=== PATIENT | male | born 1995 | race Caucasian/White ===

== ENCOUNTER → 2017-10-09 | Outpatient (CLI) | payer BC ==
[2014-09-05 17:18] VITALS: BP 143/66
--- NOTE | 2017-10-09 12:17 | RAD ---
Examination: Chest x-ray. Clinical History: Diminished lung sounds, status post pancreatitis. Technique: PA and lateral views of the chest were obtained. Comparison: None available. Findings: The cardiac and mediastinal contours are within normal limits. No pneumothorax or pleural effusion is noted. The lungs appear clear. There is a mild thoracic scoliosis seen convex to the right, which may be positional in nature. No ac [place] osseous abnormality is noted. Surgical clips are seen in the upper abdomen. Impression: 1. No acute disease. Reported By:
== END ==
LOC: RAD 10:38
PROVIDERS: ATTEND Nurse Practitioner Family
DX: D72.829 Elevated white blood cell count, unspecified (principal)
CPT/HCPCS: 71046

== ENCOUNTER → 2018-02-06 | Outpatient (CLI) | payer BC, OTHER ==
[2014-09-05 17:18] VITALS: BP 143/66
--- NOTE | 2018-02-06 16:22 | CT ---
Examination: CT of the abdomen and pelvis with contrast. Clinical History: Follow-up pancreatitis, right upper quadrant pain, gallbladder removed. Technique: Multiple axial images were obtained from the lung bases down to the pubic symphysis follow ing the intravenous administration of 100 ml of Omnipaque 350. Oral contrast was also administered. D ose reduction techniques including automated exposure control (AEC) and adjustment of mA and kV were utilized. Comparison: None available. Findings: The visualized portion of the lung bases is unremarkable. Surgical clips are noted in the gallbladder fossa, consistent with a prior cholecystectomy. There is a tiny 3 mm nonobstructing calculus present at the lower pole of the right kidney. The kidne ys are otherwise within normal limits. Despite the clinical history of pancreatitis, the pancreas is normal in appearance, with no peripancr eatic stranding, fluid collection, or cystic or solid mass noted. The liver, spleen and adrenal glands are normal in appearance. The abdominal aorta is normal in caliber. The bowel gas pattern is non-obstructive. There is no free air. The colon is within normal limits. The small bowel is grossly unremarkable. The appendix is not visualized. The bladder, prostate and seminal vesicles are within normal limits. No pelvic mass or fluid collection is noted. No enlarged lymph nodes, by CT criteria, are noted in the mesenteric, periaortic or deep pelvic regio ns. There is a minor lumbar scoliosis seen convex to the left, which may be positional in nature. Vertebr al body endplate deformities, consistent with Schmorl's nodes are present at the T11 and T12 levels. No acute osseous abnormality is noted. Impression: 1. Despite the clinical history of pancreatitis, the pancreas is normal in appearance, with no peripa ncreatic stranding, fluid collection, or cystic or solid mass noted. 2. A tiny 3 mm nonobstructing calculus associated with the right kidney. 3. Postsurgical changes from a prior cholecystectomy. Reported By:
== END | disposition home or self-care (01) | DRG 392 ==
LOC: RAD 15:08
PROVIDERS: ATTEND Internal Medicine
DX: R10.811 Right upper quadrant abdominal tenderness (principal); Z87.19 Personal history of other diseases of the digestive system; Z90.49 Acquired absence of other specified parts of digestive tract; N20.0 Calculus of kidney
CPT/HCPCS: 74177; A4222

== ENCOUNTER 2021-01-17 07:35 | Observation (INO) ==
[2021-01-17 07:52] VITALS: BMI 22.3
[2021-01-17] MEDS ORDERED: PHENERGAN INJ 25 MG IM ONE ×2 (07:53→07:55)
[2021-01-17] MEDS ORDERED: NS 1000 ML 1,000 ML ONE ×2 (08:16→09:42)
[2021-01-17] MEDS ORDERED: NS 1000 ML 1,000 ML IV ONE ×2 (08:16→09:46)
--- NOTE | 2021-01-17 08:16 | DR.N/VMALE ---
HPI Time Seen Time Seen by Provider: 01/17/21 08:05 Primary Care Physician Primary Care Physician: Jay Jay HPI Comment HPI Comment: PATIENT IS 25YR OLD MALE IN ER WITH DIFFUSED ABDOMINAL PAIN, NAUSEA AND VOMITING FOR SEVERAL HOURS. HAVE HAD LOOSE STOOLS ALSO. PATIENT IS HAVING 8/10 INTERMITTENT ABDOMINAL CRAMPING 8/10 RADIATING TO THE BACK. PAIN WORSE IN RLQ. NO FEVER OR DYSURIA. DENIES SIMILAR PAIN PREVIOUSLY OR CONTACT WITH SOME ONE WITH VOMITING. HAVE BEING IN CONTACT WITH COVID 19 VIRUS POSITIVE PERSON. PATIENT ATE AT AN [employer] LAST NIGHT WITH OTHERS WHO DO NOT HAVE HIS SYMPTOM. Complaints Chief Complaint Doctors Comments: ABDOMINAL PAIN, NAUSEA AND VOMITING SINCE 12:00 MIDNIGHT. Chief Complaint:: Patient states that he eat [employer] last night around 6pm. He then states that he started thowing up around 12AM and cannot get it under control. COVID-19 Coronavirus risk:travel/contact w/high risk person: No Has patient experienced Coronavirus symptoms: No Reviewed Nurses Notes Reviewed: Yes Source History Provided: Patient Mode of Arrival Mode of Arrival: Ambulatory Timing Onset of Chief Complaint: 01/16/21 Duration Duration: HRS Context Onset: Spontaneous Recent: None History of: None Quality Quality: Food Particles Associated Signs and Symptoms Abdominal Pain Quality: Cramping Abdominal Pain Location: Diffuse and RLQ Symptoms: Abdominal Pain and Diarrhea PMH PMH Past Medical History: No Past Surgical History: Yes Surgical History: Cholecystectomy Family History History of Family Medical Conditions: Yes Family Medical History: Hypertension Social History Does patient currently use any type of tobacco product: No Have you used tobacco products in the last 12 months: No Type of Tobacco Use: None Does any household member use tobacco: No Alcohol Use: None Do you use any recreational Drugs:: No Lives With: Family Lives Where: Home Travel Risk Coronavirus risk:travel/contact w/high risk person: No Has patient experienced Coronavirus symptoms: No Infectious screening In the last 2 months have you had wt loss of >10#?: NO Have you had fever, night sweats or hemotysis?: No Have you traveled outside the country in the last 6 months?: No Isolation: Standard ROS Review of Systems Constitutional: See HPI, Weakness and Fatigue; negative Fever Eyes: No Symptoms Reported and See HPI ENTM: No Symptoms Reported and See HPI; negative Nose Discharge and Nose Congestion Respiratoy: No Symptoms Reported and See HPI; negative Moist Cough, Short of Breath and Wheezing Cardiovascular: No Symptoms Reported and See HPI; negative Chest Pain and Edema Gastrointestinal/Abdominal: See HPI, Abdominal Pain, Diarrhea, Nausea and Vomiting; negative Constipation Genitourinary: No Symptoms Reported and See HPI; negative Dysuria, Frequency and Hematuria Neurological: See HPI and Weakness; negative Headache and Dizziness Musculoskeletal: No Symptoms Reported and See HPI; negative Back Pain and Muscle Pain Integumentary: No Symptoms Reported and See HPI; negative Change in Color, Rash and Juandice Hematologic/Lymphatic: No Symptoms Reported and See HPI; negative Easy Bruising and Swollen Glands Endocrine: No Symptoms Reported and See HPI; negative Increased Thirst and Incre ased Urine Psychiatric: No Symptoms Reported and See HPI All Other Systems: Reviewed and Negative PE Vital Signs Vitals: Temperature 99.5 F Pulse Rate 110 Respiratory Rate 18 Blood Pressure [Right Arm] 130/67 Blood Pressure 102/53 O2 Sat by Pulse Oximetry 99 General Limitations: No Limitations General Appearance: Alert and In No Apparent Distress Head Head Exam: Normal Inspection and Atraumatic Eyes Eye exam: Normal Appearance and PERRL; negative Scleral Icterus and Conjunctival Injection ENT ENT Exam: Normal Exam, Normal Oropharynx, Normal External Ear Exam and TM's Normal Bilaterally Neck Neck Exam: Normal Inspection and Trachea Midline; negative Tenderness and Lymphadenopathy Chest Chest Inspection: Normal Inspection and Symmetric Chest Wall Rise; negative Tenderness Respiratory Respiratory Exam: Normal Lung Sounds Bilat; negative Accessory Muscle Use, Chest Wall Tenderness and Respiratory Distress Respiratory Exam: Bilateral: Clear to Auscultation Cardiovascular Cardiovascular Exam: Regular Rate, Normal Rhythm and Normal Heart Sounds; negative Systolic Murmur and Diastolic Murmur Abdominal Exam Abdominal Exam: Normal Bowel Sounds, Soft and Tenderness Abdominal Tenderness: RLQ, Diffuse and Moderate Rectal Rectal Exam: Deferred Exam: Male: Deferred Extremities Extremities Exam: Normal Inspection and Normal Capillary Refill; negative Tenderness, Edema and Calf Tenderness Back Back Exam: Normal Inspection; negative (R) CVA Tenderness and (L) CVA Tenderness Neurologic Neurological Exam: Alert, Oriented X3 and CN II-XII Intact; negative Motor Sensory Deficit Psychiatric Psychiatric Exam: Normal Affect and Normal Mood Skin Skin Exam: Dry MDM Additional Information Obtained Additional Information Obtained From: Old Records and Family (GRANDMOTHER.) Differential Diagnosis Differential Diagnosis: Considerations may Include:: Appendicitis, Bowel Obstruction, Cholecystitis, Food Poisoning, Gastroenteritis, Inflammatory BD, Pancreatitis, PUD, Urinary Tract Infection and Urolithiasis COURSE Treatment Treatment: SEE ORDERS. NS 1L IV BOLUS, PHENEGAN 25MG IM, ZOFRAN 4MG IV, DEMOROL 25MG IVPB IN ER. ALSO ZITHROMAX 50MG IVPB IN ER. Reevaluation 1st: Improved (PAIN IMPROVING.) Consultation Consultation Comments: SURGICAL CONSULT TO DR. CHERY. DR. LAMBERT WILL ADMIT PATIENT. Education/Counseling Education/Counseling: Patient and Family Educated On: Diagnosis ROR Labs Reviewed Laboratory Results Reviewed?: Yes Result Diagrams: 01/18/21 05:00 01/18/21 05:00 Laboratory: 01/17/21 08:15 Stool Stool Culture - Final 01/17/21 08:15 Stool - Final WBC 18.5 X10^3/uL (3.6-10.0) H 01/17/21 08:31 RBC 5.59 X10^6/uL (4.7-6.0) 01/17/21 08:31 Hgb 17.3 g/dL (13.5-18.0) 01/17/21 08:31 Hct 52.2 % (42.0-54.0) 01/17/21 08:31 MCV 93.3 fL (80.0-100.0) 01/17/21 08:31 MCH 31.0 pg (27.0-34.0) 01/17/21 08:31 MCHC 33.2 g/dL (33.0-35.0) 01/17/21 08:31 RDW 12.6 % (11.6-16.5) 01/17/21 08:31 Plt Count 354 X10^3/uL (150.0-450.0) 01/17/21 08:31 Plt Count Comment Adequate (ADEQUATE) 01/17/21 08:31 MPV 7.8 fL (7.4-11.0) 01/17/21 08:31 Neut % (Auto) 92.0 % (42.0-75.0) H 01/17/21 08:31 Lymph % (Auto) 1.6 % (21.0-51.0) L 01/17/21 08:31 [place] % (Auto) 6.1 % (0.0-13.0) 01/17/21 08:31 Eos % (Auto) 0.2 % (0.9-2.9) L 01/17/21 08:31 Baso % (Auto) 0.1 % (0.2-1.0) L 01/17/21 08:31 Neut # (Auto) 17.0 x10^3/uL (2.2-4.8) H 01/17/21 08:31 Lymph # (Auto) 0.3 X10^3/uL (1.3-2.9) L 01/17/21 08:31 [place] # (Auto) 1.1 x10^3/uL (0.3-0.8) H 01/17/21 08:31 Eos # (Auto) 0.0 x10^3/uL (0.0-0.2) 01/17/21 08:31 Baso # (Auto) 0.0 X10^3/uL (0.0-0.1) 01/17/21 08:31 Absolute Nucleated RBC 0.0 /100WBC 01/17/21 08:31 Total Counted 100 01/17/21 08:31 Neutrophils % (Manual) 91 % (39-76) H 01/17/21 08:31 Band Neutrophils % 1 % (0-10) 01/17/21 08:31 Lymphocytes % (Manual) 7 % (13-43) L 01/17/21 08:31 Monocytes % (Manual) 1 % (4-9) L 01/17/21 08:31 Plt Morphology Comment Normal (NORMAL) 01/17/21 08:31 RBC Morphology Normal (NORMAL) 01/17/21 08:31 Sodium 143 mmol/L (136-145) 01/17/21 08:31 Corrected Sodium 143 mmol/L (136-145) 01/17/21 08:31 Potassium 4.7 mmol/L (3.5-5.1) 01/17/21 08:31 Chloride 103 mmol/L (98-107) 01/17/21 08:31 Carbon Dioxide 27.8 mmol/L (21-32) 01/17/21 08:31 BUN 18 mg/dL (7-18) 01/17/21 08:31 Creatinine 1.26 mg/dL (0.70-1.30) 01/17/21 08:31 Est GFR (MDRD) Af Amer > 60 (>60) 01/17/21 08:31 Est GFR (MDRD) Non-Af > 60 (>60) 01/17/21 08:31 Glucose 120 mg/dL (65-99) H 01/17/21 08:31 Calcium 9.5 mg/dL (8.5-10.1) 01/17/21 08:31 Corrected Calcium TNP 01/17/21 08:31 Total Bilirubin 1.30 mg/dL (0.2-1.0) H 01/17/21 08:31 AST 25 Units/L (15-37) 01/17/21 08:31 ALT 33 Units/L (12-78) 01/17/21 08:31 Alkaline Phosphatase 82 Units/L (46-116) 01/17/21 08:31 Total Protein 8.2 g/dL (6.4-8.2) 01/17/21 08:31 Albumin 4.6 g/dL (3.4-5.0) 01/17/21 08:31 Globulin 3.6 g/dL (2.5-4.5) 01/17/21 08:31 Albumin/Globulin Ratio 1.3 Ratio (1.1-2.1) 01/17/21 08:31 Amylase 18 Units/L (25-115) L 01/17/21 08:31 Lipase 80 Units/L (73-393) 01/17/21 08:31 Specimen Type Clean catch urine 01/17/21 08:15 Urine Color Benita (YELLOW) 01/17/21 08:15 Urine Appearance Clear (CLEAR) 01/17/21 08:15 Urine pH 6.0 (5.0 - 8.0) 01/17/21 08:15 Ur Specific [place] 1.015 (1.000-1.030) 01/17/21 08:15 Urine Protein 1+ (NEGATIVE) 01/17/21 08:15 Urine Glucose (UA) Negative (NEGATIVE) 01/17/21 08:15 Urine Ketones 1+ (NEGATIVE) 01/17/21 08:15 Urine Occult Blood Negative (NEGATIVE) 01/17/21 08:15 Urine Nitrite Negative (NEGATIVE) 01/17/21 08:15 Urine Bilirubin Negative (NEGATIVE) 01/17/21 08:15 Urine Urobilinogen 1+ (NORMAL) 01/17/21 08:15 Ur Leukocyte Esterase 1+ (NEGATIVE) 01/17/21 08:15 Urine RBC 3-5 /HPF (0-3) A 01/17/21 08:15 Urine WBC 5-10 /HPF (0-5) A 01/17/21 08:15 Ur Squamous Epith Cells Rare /HPF (NEGATIVE) 01/17/21 08:15 Urine Bacteria 1+ /HPF (NEGATIVE) 01/17/21 08:15 Urine Mucus Numerous /HPF (NEGATIVE) 01/17/21 08:15 Ur Culture Indicated? No/not indicated 01/17/21 08:15 Stool Description 200g liquid lt brown 01/17/21 08:15 Stool Description 200g liquid lt brown 01/17/21 08:15 Stl Occult Blood (IFOB) Positive (NEGATIVE) A 01/17/21 08:15 Stool for White Cells Positive (NEGATIVE) A 01/17/21 08:15 Stl C. diff Tox B Gene Negative (NEGATIVE) 01/17/21 08:15 Stl C. diff [id number] Presumptive negative (NEGATIVE) 01/17/21 08:15 Stool H. pylori Ag Negative (NEGATIVE) 01/17/21 08:15 Cryptosporid parvum Ag Negative (NEGATIVE) 01/17/21 08:15 Giardia lamblia Ag Negative (NEGATIVE) 01/17/21 08:15 SARS CoV-2 RNA Rapid LIZBETH Positive (NEGATIVE) A 01/17/21 15:26 XRAY XRAY Interpreted by: Radiologist (REPORT NOTED AND DISCUSSED WITH PATIENT.) and Self Opioid Opioid Risk Tool Age (Christian box if 16-45): Yes History of Preadolescent Sexual Abuse: No Total: 1 Total Score Risk Category: Low Risk Copyright: [facility] predicting aberrant behaviors Diagnosis Discharge Problem: Gastroenteritis, Campylobacter diarrhea, COVID-19 virus infection, Dehydration Abdominal pain Qualifiers: Abdominal location: generalized Qualified Code(s): R10.84 - Generalized abdominal pain UTI (urinary tract infection) Qualifiers: Urinary tract infection type: site unspecified Hematuria presence: with hematuria Qualified Code(s): N39.0 - Urinary tract infection, site not specified Instructions Instructions: Campylobacter Gastroenteritis Stool for Occult Blood Test Hand Washing, Xczs-gp-Ynsc Antibiotic Medicine, Adult, Fnbp-bc-Twhk Abdominal Pain, Adult, Azne-od-Cmqh Nausea and Vomiting, Adult, Prab-qq-Dgpn Food Choices to Help Relieve Diarrhea, Adult Droplet Precautions, Sgqj-wl-Untp Contact Precautions, Rnfl-xg-Ajls Stool Culture You've Been Prescribed an Antibiotic in the Hospital for an Infection - [facility] [place] (12/2017) Diarrhea, Adult, Vvow-kw-Fnbu Forms: Excuse From Work or School Precautions for COVID19 Patient Portal Social Distancing
[2021-01-17] MEDS ORDERED: ZOFRAN INJ 4 MG VIAL ONE (08:40)
[2021-01-17] MEDS ORDERED: DEMEROL INJ ONE (08:40)
[2021-01-17] MEDS: ZOFRAN INJ 4 MG VIAL IVP ONE ×2 (08:42→08:44)
[2021-01-17] MEDS: DEMEROL INJ IVP ONE ×2 (08:42→08:43)
[2021-01-17 08:47] LABS: BASOPHILS % (AUTO) 0.1 % (0.2-1.0); EOSINOPHILS % (AUTO) 0.2 % (0.9-2.9); HEMATOCRIT 52.2 % (42.0-54.0); HEMOGLOBIN 17.3 g/dL (13.5-18.0); LYMPHOCYTES # (AUTO) 0.3 X10^3/uL (1.3-2.9); LYMPHOCYTES % (AUTO) 1.6 % (21.0-51.0); MEAN CORPUSCULAR HGB CONC 33.2 g/dL (33.0-35.0); MEAN CORPUSCULAR VOLUME 93.3 fL (80.0-100.0); MEAN PLATELET VOLUME 7.8 fL (7.4-11.0); MONOCYTES # (AUTO) 1.1 x10^3/uL (0.3-0.8); MONOCYTES % (AUTO) 6.1 % (0.0-13.0); PLATELET COUNT 354 X10^3/uL (150.0-450.0); RED BLOOD COUNT 5.59 X10^6/uL (4.7-6.0); RED CELL DISTRIBUTION WIDTH 12.6 % (11.6-16.5); WHITE BLOOD COUNT 18.5 X10^3/uL (3.6-10.0)
[2021-01-17 08:51] LABS: BILIRUBIN,URINE NEGATIVE (NEGATIVE); BLOOD/HEMOGLOBIN,URINE NEGATIVE (NEGATIVE); GLUCOSE, URINE NEGATIVE (NEGATIVE); KETONES,URINE 1+ (NEGATIVE); LEUKOCYTE ESTERASE ,URINE 1+ (NEGATIVE); NITRITES,URINE NEGATIVE (NEGATIVE); PROTEIN,URINE 1+ (NEGATIVE); UROBILINOGEN,URINE 1+ (NORMAL)
[2021-01-17 08:57] LABS: ALANINE AMINOTRANSFERASE 33 Units/L (12-78); ALBUMIN 4.6 g/dL (3.4-5.0); ALKALINE PHOSPHATASE 82 Units/L (46-116); AMYLASE 18 Units/L (25-115); ASPARTATE AMINO TRANSFERASE 25 Units/L (15-37); BLOOD UREA NITROGEN 18 mg/dL (7-18); CALCIUM 9.5 mg/dL (8.5-10.1); CARBON DIOXIDE 27.8 mmol/L (21-32); CHLORIDE 103 mmol/L (98-107); COR NA(FOR HYPERGLY) 143 mmol/L (136-145); CREATININE 1.26 mg/dL (0.70-1.30); LIPASE 80 Units/L (73-393); SODIUM 143 mmol/L (136-145); TOTAL PROTEIN 8.2 g/dL (6.4-8.2); eGFR NON BLACK RACES > 60 (>60)
[2021-01-17 08:59] LABS: APPEARANCE,URINE CLEAR (CLEAR); COLOR,URINE AMBER (YELLOW)
[2021-01-17 09:00] LABS: BACTERIA,URINE 1+ /HPF (NEGATIVE); MUCUS,URINE NUMEROUS /HPF (NEGATIVE); SQUAMOUS EPITHELIAL CELL,UR RARE /HPF (NEGATIVE)
[2021-01-17 09:13] LABS: BAND NEUTROPHILS % 1 % (0-10); PLATELET MORPHOLOGY COMMENT NORMAL (NORMAL)
[2021-01-17 09:41] LABS: CRYPTOSPORIDIUM PARVUM ANTIGEN NEGATIVE (NEGATIVE); GIARDIA LAMBLIA ANTIGEN NEGATIVE (NEGATIVE)
--- NOTE | 2021-01-17 10:43 | CT ---
HISTORYn/vSTUDYABDOMEN/PELVIS WITH CONCOMPARISONReport only from CT abdomen/pelvis dated October 16, 2018.TECHNIQUEMultiple axial images of the abdomen and pelvis were obtained from the lung bases to the pubic symphysis after the administration of IV contrast. Dose reduction techniques including Automated Exposure Control (AEC) and adjustment of mA and kV were utilized.FINDINGSThe visualized portions of the lung bases are unremarkable . The liver, spleen, pancreas, and adrenal glands are unremarkable in their CT appearance. The gallbladder is surgically absent. Suggestion of bilateral punctate and nonobstructing nephroliths within the bilateral kidneys. The kidneys are otherwise unremarkable. No significant mesenteric lymphadenopathy or stranding can be observed. No free fluid or free air is seen within the abdomen. Limited evaluation of the large and small bowel secondary to lack of oral contrast and collapse. The large and small bowel are otherwise unremarkable. The appendix is not well seen, but no secondary signs to suggest acute appendicitis. The prostate gland is unremarkable. The urinary bladder is grossly unremarkable. The bony structures are grossly intact.IMPRESSIONNo CT evidence of acute abdominal/pelvic pathology.Electronically signed by: CHAIM LUNA (January 17, 2021 10:40:34)
[2021-01-17] MEDS ORDERED: ZITHROMAX INJ 500 MG VIAL IV ONE (11:00)
[2021-01-17] MEDS ORDERED: NS 250 ML IV 250 ML IV ONE (11:00)
[2021-01-17] MEDS: ZITHROMAX INJ 500 MG VIAL 500 MG in NS 250 ML IV 250 ML IV SCH ×3 (11:04→17:46)
[2021-01-17] MEDS ORDERED: PEPCID 20 MG IV PREMIX* 20 MG/50 ML BAG IV PRN (15:02)
[2021-01-17] MEDS ORDERED: ZOFRAN INJ 4 MG VIAL IVP PRN (15:02)
[2021-01-17] MEDS: NS 1000 ML 1,000 ML IV SCH (17:00)
--- NOTE | 2021-01-17 19:14 | RAD ---
HISTORYCOVID +; N/V ABDOMINAL PAINSTUDYCHEST, PA/LAT ADULTCOMPARISONJanuary 2019TECHNIQUEPA and lateral projections, 2 imagesFINDINGSCardiac silhouette is normal in size and configuration.Pulmonary vascular sizes are normal.No effusion.No focal airspace disease.No pneumothorax.No acute osseous abnormalityIMPRESSIONNo imaging findings of acute cardiopulmonary disease.Electronically signed by: Prieto Trujillo (January 17, 2021 19:12:06)
[2021-01-17] MEDS: ROCEPHIN VIAL 1 GRAM 1 G in NS 100 ML IV + SPIKE MINIBAG* 100 ML IV SCH (19:26)
[2021-01-17] MEDS: TYLENOL 325 MG TAB PO PRN (19:27)
[2021-01-18] MEDS: NS 1000 ML 1,000 ML IV SCH ×4 (00:10→05:16)
[2021-01-18 05:22] LABS: BASOPHILS % (AUTO) 0.7 % (0.2-1.0); EOSINOPHILS # (AUTO) 0.1 x10^3/uL (0.0-0.2); EOSINOPHILS % (AUTO) 1.5 % (0.9-2.9); HEMATOCRIT 36.4 % (42.0-54.0); HEMOGLOBIN 12.5 g/dL (13.5-18.0); LYMPHOCYTES # (AUTO) 0.8 X10^3/uL (1.3-2.9); LYMPHOCYTES % (AUTO) 12.9 % (21.0-51.0); MEAN CORPUSCULAR HEMOGLOBIN 31.9 pg (27.0-34.0); MEAN CORPUSCULAR HGB CONC 34.2 g/dL (33.0-35.0); MEAN CORPUSCULAR VOLUME 93.2 fL (80.0-100.0); MEAN PLATELET VOLUME 7.6 fL (7.4-11.0); MONOCYTES # (AUTO) 0.8 x10^3/uL (0.3-0.8); MONOCYTES % (AUTO) 12.1 % (0.0-13.0); NEUTROPHILS # (AUTO) 4.7 x10^3/uL (2.2-4.8); NEUTROPHILS % (AUTO) 72.8 % (42.0-75.0); PLATELET COUNT 214 X10^3/uL (150.0-450.0); RED BLOOD COUNT 3.91 X10^6/uL (4.7-6.0); RED CELL DISTRIBUTION WIDTH 12.5 % (11.6-16.5); WHITE BLOOD COUNT 6.5 X10^3/uL (3.6-10.0)
[2021-01-18 05:31] LABS: ALANINE AMINOTRANSFERASE 23 Units/L (12-78); ALBUMIN 2.7 g/dL (3.4-5.0); ALKALINE PHOSPHATASE 42 Units/L (46-116); AMYLASE 11 Units/L (25-115); ASPARTATE AMINO TRANSFERASE 21 Units/L (15-37); BLOOD UREA NITROGEN 10 mg/dL (7-18); CALCIUM 7.8 mg/dL (8.5-10.1); CARBON DIOXIDE 26.1 mmol/L (21-32); CHLORIDE 109 mmol/L (98-107); COR CA(FOR HYPOALB) 8.8 mg/dL (8.5-10.1); CREATININE 0.93 mg/dL (0.70-1.30); LIPASE 62 Units/L (73-393); SODIUM 143 mmol/L (136-145); TOTAL PROTEIN 5.2 g/dL (6.4-8.2); eGFR NON BLACK RACES > 60 (>60)
[2021-01-18] MEDS: TYLENOL 325 MG TAB PO PRN (06:26)
--- NOTE | 2021-01-18 09:04 | DR.H&P ---
H&P History & Physical for Day of: H&P Date: 01/18/21 Chief Complaint Chief Complaint: nausea, vomiting and abdominal pain Allergies Allergies Allergy/AdvReac Type Severity Reaction Status Date / Time No Known Drug Allergies Allergy Verified 10/16/18 09:18 History of Present Illness History of Present Illness: Tommy is a 25 y/o male with a PMH of gastritis, pa ncreatitis, cholecystectomy presented with intractable nausea, vomiting and diarrhea that started Monday night. He states he ate [employer] for dinner and a few hours after that he started throwing up. He tried taking some Phenergan but he was not able to keep it down. He was having diarrhea so he decided to come to the ED. He was also having RLQ pain. He has a hx of stomach ulcers, last EGD 2 years ago. He reports having flu like Sx few weeks ago but resolved in a couple days. His tested positive for COVID 2 weeks ago. He denies fever or chills, denies respiratory Sx. ER work-up - CTAP: no acute process, CXR: negative - Labs: WBC: 18.5 (6.5), Hgb 12.5 Total Mnaolo: 1.3 (0.70) normal LFTs, normal lipase and amylase - Stool studies: Campy + FOBT + Fecal WBC + - UA: + bacteria, + IVY + WBC - COVID-19: Positive Dr. Millan was consulted in the ED due to concern for appendicitis and it was ruled out. Patient was started on clears which he tolerated. He feels better this morning, nausea has improved and no further vomiting. He states abdominal pain is almost resolved, just some mild discomfort in the RLQ. He had 3 episodes of diarrhea in the ED and one overnight. Plan: continue NPO for now, Dr. Millan to see him this morning and decide if he needs EGD. Continue hydration with NS. Continue anti-emetics and Pepcid. Continue Rocephin and Azithromycin. Follow urine culture. Monitor AM labs/imaging. Past Medical History Additional Medical History: Gastritis Pancreatitis Past Surgical History Surgical History: Cholecystectomy Family History Family Medical History: Hypertension Social History Does patient currently use any type of tobacco product: No Have you used tobacco products in the last 12 months: No Type of Tobacco Use: None Does any household member use tobacco: No Alcohol Use: None Drug Use: None Prescription drug monitoring program results: PDMP reviewed and no concerns identified Medications Home Medications: No Known Drug Allergies Allergy (Verified 10/16/18 09:18) CONTINUE taking the following medications NK 01/17/21 [History] Labs Result Diagrams: 01/18/21 05:00 01/18/21 05:00 Labs: 01/17/21 08:15 Stool - Final Laboratory WBC 6.5 X10^3/uL (3.6-10.0) D 01/18/21 05:00 RBC 3.91 X10^6/uL (4.7-6.0) L 01/18/21 05:00 Hgb 12.5 g/dL (13.5-18.0) L D 01/18/21 05:00 Hct 36.4 % (42.0-54.0) L 01/18/21 05:00 MCV 93.2 fL (80.0-100.0) 01/18/21 05:00 MCH 31.9 pg (27.0-34.0) 01/18/21 05:00 MCHC 34.2 g/dL (33.0-35.0) 01/18/21 05:00 RDW 12.5 % (11.6-16.5) 01/18/21 05:00 Plt Count 214 X10^3/uL (150.0-450.0) 01/18/21 05:00 Plt Count Comment Adequate (ADEQUATE) 01/17/21 08:31 MPV 7.6 fL (7.4-11.0) 01/18/21 05:00 Neut % (Auto) 72.8 % (42.0-75.0) 01/18/21 05:00 Lymph % (Auto) 12.9 % (21.0-51.0) L 01/18/21 05:00 [place] % (Auto) 12.1 % (0.0-13.0) 01/18/21 05:00 Eos % (Auto) 1.5 % (0.9-2.9) 01/18/21 05:00 Baso % (Auto) 0.7 % (0.2-1.0) 01/18/21 05:00 Neut # (Auto) 4.7 x10^3/uL (2.2-4.8) 01/18/21 05:00 Lymph # (Auto) 0.8 X10^3/uL (1.3-2.9) L 01/18/21 05:00 [place] # (Auto) 0.8 x10^3/uL (0.3-0.8) 01/18/21 05:00 Eos # (Auto) 0.1 x10^3/uL (0.0-0.2) 01/18/21 05:00 Baso # (Auto) 0.0 X10^3/uL (0.0-0.1) 01/18/21 05:00 Absolute Nucleated RBC 0.1 /100WBC 01/18/21 05:00 Total Counted 100 01/17/21 08:31 Neutrophils % (Manual) 91 % (39-76) H 01/17/21 08:31 Band Neutrophils % 1 % (0-10) 01/17/21 08:31 Lymphocytes % (Manual) 7 % (13-43) L 01/17/21 08:31 Monocytes % (Manual) 1 % (4-9) L 01/17/21 08:31 Plt Morphology Comment Normal (NORMAL) 01/17/21 08:31 RBC Morphology Normal (NORMAL) 01/17/21 08:31 Sodium 143 mmol/L (136-145) 01/18/21 05:00 Corrected Sodium TNP 01/18/21 05:00 Potassium 3.8 mmol/L (3.5-5.1) 01/18/21 05:00 Chloride 109 mmol/L (98-107) H 01/18/21 05:00 Carbon Dioxide 26.1 mmol/L (21-32) 01/18/21 05:00 BUN 10 mg/dL (7-18) 01/18/21 05:00 Creatinine 0.93 mg/dL (0.70-1.30) 01/18/21 05:00 Est GFR (MDRD) Af Amer > 60 (>60) 01/18/21 05:00 Est GFR (MDRD) Non-Af > 60 (>60) 01/18/21 05:00 Glucose 100 mg/dL (65-99) H 01/18/21 05:00 Calcium 7.8 mg/dL (8.5-10.1) L 01/18/21 05:00 Corrected Calcium 8.8 mg/dL (8.5-10.1) 01/18/21 05:00 Total Bilirubin 0.70 mg/dL (0.2-1.0) 01/18/21 05:00 AST 21 Units/L (15-37) 01/18/21 05:00 ALT 23 Units/L (12-78) 01/18/21 05:00 Alkaline Phosphatase 42 Units/L (46-116) L 01/18/21 05:00 Total Protein 5.2 g/dL (6.4-8.2) L 01/18/21 05:00 Albumin 2.7 g/dL (3.4-5.0) L 01/18/21 05:00 Globulin 2.5 g/dL (2.5-4.5) 01/18/21 05:00 Albumin/Globulin Ratio 1.1 Ratio (1.1-2.1) 01/18/21 05:00 Amylase 11 Units/L (25-115) L 01/18/21 05:00 Lipase 62 Units/L (73-393) L 01/18/21 05:00 Specimen Type Clean catch urine 01/17/21 08:15 Urine Color Benita (YELLOW) 01/17/21 08:15 Urine Appearance Clear (CLEAR) 01/17/21 08:15 Urine pH 6.0 (5.0 - 8.0) 01/17/21 08:15 Ur Specific [place] 1.015 (1.000-1.030) 01/17/21 08:15 Urine Protein 1+ (NEGATIVE) 01/17/21 08:15 Urine Glucose (UA) Negative (NEGATIVE) 01/17/21 08:15 Urine Ketones 1+ (NEGATIVE) 01/17/21 08:15 Urine Occult Blood Negative (NEGATIVE) 01/17/21 08:15 Urine Nitrite Negative (NEGATIVE) 01/17/21 08:15 Urine Bilirubin Negative (NEGATIVE) 01/17/21 08:15 Urine Urobilinogen 1+ (NORMAL) 01/17/21 08:15 Ur Leukocyte Esterase 1+ (NEGATIVE) 01/17/21 08:15 Urine RBC 3-5 /HPF (0-3) A 01/17/21 08:15 Urine WBC 5-10 /HPF (0-5) A 01/17/21 08:15 Ur Squamous Epith Cells Rare /HPF (NEGATIVE) 01/17/21 08:15 Urine Bacteria 1+ /HPF (NEGATIVE) 01/17/21 08:15 Urine Mucus Numerous /HPF (NEGATIVE) 01/17/21 08:15 Ur Culture Indicated? No/not indicated 01/17/21 08:15 Stool Description 200g liquid lt brown 01/17/21 08:15 Stool Description 200g liquid lt brown 01/17/21 08:15 Stl Occult Blood (IFOB) Positive (NEGATIVE) A 01/17/21 08:15 Stool for White Cells Positive (NEGATIVE) A 01/17/21 08:15 Stl C. diff Tox B Gene Negative (NEGATIVE) 01/17/21 08:15 Stl C. diff [id number] Presumptive negative (NEGATIVE) 01/17/21 08:15 Stool H. pylori Ag Negative (NEGATIVE) 01/17/21 08:15 Cryptosporid parvum Ag Negative (NEGATIVE) 01/17/21 08:15 Giardia lamblia Ag Negative (NEGATIVE) 01/17/21 08:15 SARS CoV-2 RNA Rapid LIZBETH Positive (NEGATIVE) A 01/17/21 15:26 Review of Systems Constitutional: Weakness Eyes: No Symptoms Reported ENT: No Symptoms Reported Respiratory: No Symptoms Reported Cardiovascular: No Symptoms Reported Gastrointestinal: Nausea, Vomiting, Abdominal Pain and Diarrhea Genitourinary: No Symptoms Reported Musculoskeletal: No Symptoms Reported Skin: No Symptoms Reported Neurological: No Symptoms Reported Physical Exam Vital Signs: Temperature 98.5 F Pulse Rate 87 Respiratory Rate 20 Blood Pressure [Right Arm] 130/67 Blood Pressure 92/52 O2 Sat by Pulse Oximetry 96 Oriented: Normal Eyes: Normal Ear: Normal Nose: Normal Throat: Normal Respiratory: Clear Throughout Cardiovascular: Normal Auscultation: Bowel Sounds: Increased Palpation: Normal Tenderness: RLQ and Mild; negative Rebound and Guarding Skin: Normal Musculoskeletal: Normal Psychiatric: Normal Mood Description: Calm and Appropriate Affect: Normal Speech Pattern: Clear and Appropriate Assessment/Plan (1) Abdominal pain: Qualifiers: Abdominal location: generalized Qualified Code(s): R10.84 - Generalized abdominal pain Status: Acute (2) Gastroenteritis: Status: Acute (3) Campylobacter diarrhea: Status: Acute (4) UTI (urinary tract infection): Qualifiers: Hematuria presence: with hematuria Urinary tract infection type: site unspecified Qualified Code(s): N39.0 - Urinary tract infection, site not specified; R31.9 - Hematuria, unspecified Status: Acute (5) SARS-CoV-2 positive: Status: Acute (6) Intractable nausea and vomiting: Status: Acute Review H&P Reviewed: Yes Patient was examined?: Yes
[2021-01-18] MEDS: ROCEPHIN VIAL 1 GRAM 1 G in NS 100 ML IV + SPIKE MINIBAG* 100 ML IV SCH (09:42)
[2021-01-18] MEDS ORDERED: TORADOL TAB PO PRN (09:53)
[2021-01-18] MEDS ORDERED: TORADOL TAB PO ONE (10:27)
[2021-01-18] MEDS: ZITHROMAX INJ 500 MG VIAL 500 MG in NS 250 ML IV 250 ML IV SCH (10:50)
--- NOTE | 2021-01-18 10:57 | DR.PROGNOT ---
Hospital Progress Notes - Progress Note for Day of: Progress Note Date: 01/18/21 - Chief Complaint Chief Complaint: feeling much better today . no nausea or vomiting .. still having moderate loose BM , no leeding , no abdominal pain today . tolerating diet . - Past Medical Family Social History Past Med/Fam/Surg Hx: No changes since H&P Allergies: Allergies No Known Drug Allergies Allergy (Verified 10/16/18 09:18) - Review Of Systems ROS: No change since H&P - Vital Signs Vital Signs: Temperature 98.5 F Pulse Rate 87 Respiratory Rate 18 Blood Pressure [Right Arm] 130/67 Blood Pressure 92/52 O2 Sat by Pulse Oximetry 96 - Physical Exam Oriented: Normal Eyes: Normal Ear: Normal Nose: Normal Throat: Normal Cardiovascular: Normal : Normal GI:Auscultation: Normal, Increased GI:Palpation: Normal GI: Tenderness: Normal (soft abdomen . non tender . BS+), RLQ, Mild. negative: Rebound, Guarding Skin: Normal Musculoskeletal: Normal Psychiatric: Normal Mood Description: Calm, Appropriate Affect: Normal Speech Pattern: Clear, Appropriate - Laboratory and Diagnostics Result Diagrams: 01/18/21 05:00 01/18/21 05:00 Labs: 01/17/21 08:15 Stool Stool Culture - Preliminary 01/17/21 08:15 Stool - Final Laboratory WBC 6.5 X10^3/uL (3.6-10.0) D 01/18/21 05:00 RBC 3.91 X10^6/uL (4.7-6.0) L 01/18/21 05:00 Hgb 12.5 g/dL (13.5-18.0) L D 01/18/21 05:00 Hct 36.4 % (42.0-54.0) L 01/18/21 05:00 MCV 93.2 fL (80.0-100.0) 01/18/21 05:00 MCH 31.9 pg (27.0-34.0) 01/18/21 05:00 MCHC 34.2 g/dL (33.0-35.0) 01/18/21 05:00 RDW 12.5 % (11.6-16.5) 01/18/21 05:00 Plt Count 214 X10^3/uL (150.0-450.0) 01/18/21 05:00 Plt Count Comment Adequate (ADEQUATE) 01/17/21 08:31 MPV 7.6 fL (7.4-11.0) 01/18/21 05:00 Neut % (Auto) 72.8 % (42.0-75.0) 01/18/21 05:00 Lymph % (Auto) 12.9 % (21.0-51.0) L 01/18/21 05:00 [place] % (Auto) 12.1 % (0.0-13.0) 01/18/21 05:00 Eos % (Auto) 1.5 % (0.9-2.9) 01/18/21 05:00 Baso % (Auto) 0.7 % (0.2-1.0) 01/18/21 05:00 Neut # (Auto) 4.7 x10^3/uL (2.2-4.8) 01/18/21 05:00 Lymph # (Auto) 0.8 X10^3/uL (1.3-2.9) L 01/18/21 05:00 [place] # (Auto) 0.8 x10^3/uL (0.3-0.8) 01/18/21 05:00 Eos # (Auto) 0.1 x10^3/uL (0.0-0.2) 01/18/21 05:00 Baso # (Auto) 0.0 X10^3/uL (0.0-0.1) 01/18/21 05:00 Absolute Nucleated RBC 0.1 /100WBC 01/18/21 05:00 Total Counted 100 01/17/21 08:31 Neutrophils % (Manual) 91 % (39-76) H 01/17/21 08:31 Band Neutrophils % 1 % (0-10) 01/17/21 08:31 Lymphocytes % (Manual) 7 % (13-43) L 01/17/21 08:31 Monocytes % (Manual) 1 % (4-9) L 01/17/21 08:31 Plt Morphology Comment Normal (NORMAL) 01/17/21 08:31 RBC Morphology Normal (NORMAL) 01/17/21 08:31 Sodium 143 mmol/L (136-145) 01/18/21 05:00 Corrected Sodium TNP 01/18/21 05:00 Potassium 3.8 mmol/L (3.5-5.1) 01/18/21 05:00 Chloride 109 mmol/L (98-107) H 01/18/21 05:00 Carbon Dioxide 26.1 mmol/L (21-32) 01/18/21 05:00 BUN 10 mg/dL (7-18) 01/18/21 05:00 Creatinine 0.93 mg/dL (0.70-1.30) 01/18/21 05:00 Est GFR (MDRD) Af Amer > 60 (>60) 01/18/21 05:00 Est GFR (MDRD) Non-Af > 60 (>60) 01/18/21 05:00 Glucose 100 mg/dL (65-99) H 01/18/21 05:00 Calcium 7.8 mg/dL (8.5-10.1) L 01/18/21 05:00 Corrected Calcium 8.8 mg/dL (8.5-10.1) 01/18/21 05:00 Total Bilirubin 0.70 mg/dL (0.2-1.0) 01/18/21 05:00 AST 21 Units/L (15-37) 01/18/21 05:00 ALT 23 Units/L (12-78) 01/18/21 05:00 Alkaline Phosphatase 42 Units/L (46-116) L 01/18/21 05:00 Total Protein 5.2 g/dL (6.4-8.2) L 01/18/21 05:00 Albumin 2.7 g/dL (3.4-5.0) L 01/18/21 05:00 Globulin 2.5 g/dL (2.5-4.5) 01/18/21 05:00 Albumin/Globulin Ratio 1.1 Ratio (1.1-2.1) 01/18/21 05:00 Amylase 11 Units/L (25-115) L 01/18/21 05:00 Lipase 62 Units/L (73-393) L 01/18/21 05:00 Specimen Type Clean catch urine 01/17/21 08:15 Urine Color [place] (YELLOW) 01/17/21 08:15 Urine Appearance Clear (CLEAR) 01/17/21 08:15 Urine pH 6.0 (5.0 - 8.0) 01/17/21 08:15 Ur Specific [place] 1.015 (1.000-1.030) 01/17/21 08:15 Urine Protein 1+ (NEGATIVE) 01/17/21 08:15 Urine Glucose (UA) Negative (NEGATIVE) 01/17/21 08:15 Urine Ketones 1+ (NEGATIVE) 01/17/21 08:15 Urine Occult Blood Negative (NEGATIVE) 01/17/21 08:15 Urine Nitrite Negative (NEGATIVE) 01/17/21 08:15 Urine Bilirubin Negative (NEGATIVE) 01/17/21 08:15 Urine Urobilinogen 1+ (NORMAL) 01/17/21 08:15 Ur Leukocyte Esterase 1+ (NEGATIVE) 01/17/21 08:15 Urine RBC 3-5 /HPF (0-3) A 01/17/21 08:15 Urine WBC 5-10 /HPF (0-5) A 01/17/21 08:15 Ur Squamous Epith Cells Rare /HPF (NEGATIVE) 01/17/21 08:15 Urine Bacteria 1+ /HPF (NEGATIVE) 01/17/21 08:15 Urine Mucus Numerous /HPF (NEGATIVE) 01/17/21 08:15 Ur Culture Indicated? No/not indicated 01/17/21 08:15 Stool Description 200g liquid lt brown 01/17/21 08:15 Stool Description 200g liquid lt brown 01/17/21 08:15 Stl Occult Blood (IFOB) Positive (NEGATIVE) A 01/17/21 08:15 Stool for White Cells Positive (NEGATIVE) A 01/17/21 08:15 Stl C. diff Tox B Gene Negative (NEGATIVE) 01/17/21 08:15 Stl C. diff [id number] Presumptive negative (NEGATIVE) 01/17/21 08:15 Stool H. pylori Ag Negative (NEGATIVE) 01/17/21 08:15 Cryptosporid parvum Ag Negative (NEGATIVE) 01/17/21 08:15 Giardia lamblia Ag Negative (NEGATIVE) 01/17/21 08:15 SARS CoV-2 RNA Rapid LIZBETH Positive (NEGATIVE) A 01/17/21 15:26 - Assessment and Plan 1: subsided abdominal pain . Campybacteria in stool , colitis. UTI . COVID19 . maybe discharged from surgical point of view on [place] and to follow as out Pt - Problem Patient Problems: Patient Problems Abdominal pain (Acute) R10.9 Gastroenteritis (Acute) K52.9 Campylobacter diarrhea (Acute) A04.5 UTI (urinary tract infection) (Acute) N39.0
[2021-01-18] MEDS ORDERED: ZITHROMAX TAB 250 MG PO SCH (13:00)
[2021-01-18 17:25] VITALS: BP 106/68
== END 2021-01-18 16:15 | disposition home or self-care (01) ==
LOC: ICU 07:41 → ER 07:41 → ICU 17:00
PROVIDERS: ADMIT Internal Medicine; ATTEND Internal Medicine
DX: A04.5 Campylobacter enteritis; E86.0 Dehydration; R31.9 Hematuria, unspecified; R11.2 Nausea with vomiting, unspecified; R51.9 Headache, unspecified; U07.1 COVID-19; R10.84 Generalized abdominal pain; N39.0 Urinary tract infection, site not specified